=== PATIENT | female | born 1935 | race Two or more races ===

== ENCOUNTER 2019-06-05 11:20 | Outpatient (CLI) | payer OTHER ==
[~2019-06-05 11:20] MED LIST: ADULT LOW DOSE81 M1 PO; ARICEPT10 MG PO; CARAFATE PO; INDUR PO; LASIX20 MG PO; METHO PO; PROTONIX40 M1 PO; SYNTHROID100 MCG PO; SYNTHROID112 MCG PO; TOPROL XL25 M1 PO
[2019-06-10] MEDS ORDERED: ISOSORBIDE MONO30 MG PO (09:10)
[2019-06-10] MEDS ORDERED: CARAFATE1 GM PO (09:11)
[2019-06-10] MEDS ORDERED: TREXALL7.5 MG PO (09:12)
== END 2019-06-05 12:00 | disposition home or self-care (01) ==
LOC: NUCLEAR 11:20
DX: I87.2 Venous insufficiency (chronic) (peripheral) (principal); Z86.718 Personal history of other venous thrombosis and embolism

== ENCOUNTER 2020-06-25 06:34 | Day surgery (SDC) | payer OTHER ==
[~2020-06-25 06:34] MED LIST changes: +CARAFATE1 GM PO; +ISOSORBIDE MONO30 MG PO; +LEVSIN/SL0.125 MG SL; +PERCOCET 5-3251 EACH PO; +SIMETHICONE80 MG PO; +TREXALL7.5 MG PO
== END 2020-06-25 13:10 | disposition home or self-care (01) ==
LOC: AMB-ENDOS 06:34
PROVIDERS: ATTEND Colon & Rectal Surgery
DX: K57.32 Diverticulitis of large intestine without perforation or abscess without bleeding (principal); K64.1 Second degree hemorrhoids; Z20.822 Contact with and (suspected) exposure to COVID-19